=== PATIENT | male | born 1960 | race African-American/Black ===

== ENCOUNTER 2017-02-26 11:04 | Inpatient (IN) ==
--- NOTE | 2017-02-26 13:37 | General Surgery Consult Note ---
Assessment and Plan (1) End stage renal disease Status: Acute Assessment and plan: Impression: End-stage renal disease Plan: For placement of tunneled hemodialysis catheter today. The procedure and habits performed and the anticipated recovery were all discussed. The risk of the procedure including bleeding, infection, damage to surrounding structures, need for further surgery were all discussed in detail and he would like to proceed. He has been n.p.o. today. Discussed with Dr. Campbell. Current Visit: Yes History of Present Illness Chief complaint: Consult for tunneled hemodialysis catheter History of present illness: Mr. Person is a 57 year old male who was admitted from clinic today by Dr. Campbell with plans to begin hemodialysis urgently. I have been asked to place a hemodialysis catheter for access. This is been discussed with Dr. Campbell. Patient has no complaints that would affect placement of the catheter. Home Medications Medication Instructions Recorded Confirmed Type Atorvastatin [Lipitor] 20 mg PO DAILY 06/28/15 History Brimonidine 0.1% Oph Soln 1 drop BOTH EYES TID 06/28/15 History [Alphagan P 0.1% Oph Soln] Carvedilol [Coreg] 12.5 mg PO BID 06/28/15 History Clobetasol Propionate [Clobetasol 1 applic TOP BID 06/28/15 History 0.05% Cream] Doxazosin Mesylate [Cardura] 8 mg PO DAILY 06/28/15 History Ferrous Sulfate [Ferrous Sulfate 325 mg PO DAILY 06/28/15 History Cap] Furosemide 20 mg PO DAILY 06/28/15 History Insulin Glargine [Lantus] 40 unit SUBCUT DAILY 06/28/15 History Latanoprost 0.005% Oph Soln 1 drop BOTH EYES BEDTIME 06/28/15 History [Xalatan 0.005% Oph Soln] Oxycodone HCl/Acetaminophen 1 each PO Q6H 06/28/15 History [Percocet 10-325 mg Tablet] Pantoprazole Tab [Protonix Tab] 40 mg PO DAILY 06/28/15 History amLODIPine [Norvasc] 10 mg PO DAILY 06/28/15 History Amoxicillin/Clav Tab [Augmentin 875 mg PO Q12H #14 tablet 10/02/16 Rx Tab] traMADol TAB [Ultram] 50 mg PO Q4H PRN #30 tablet 10/02/16 Rx traMADol TAB [Ultram] 50 mg PO Q4H PRN #30 tablet 10/02/16 Rx Allergies Allergy/AdvReac Type Severity Reaction Status Date / Time morphine Allergy ITCHING Verified 03/16/15 19:01 Medical,Surgical,& Family Hx - Medical History Cardio: History of: CHF, Hypertension Endocrine: History of: Diabetes Mellitus (NIDDM) Renal: History of: Dialysis (new onset 02-26-17), Renal Failure Musculoskeletal: History of: Back/Neck Problems - Surgical History Orthopedic Surgeries: Surgical HX of;: Spinal Surgery (2 metal plates with screws in back) - Family History Family History: Reports;: Family Cancer (brother), Family Diabetes (mother, father), Family Hypertension (mother) Denies;: Family Anesthesia Reaction, Family Heart Disease, Family Hematology , Family Psychiatric Problems, Family Stroke, Additional Family History - Social History Smoking Status: Never smoker Frequency of Alcohol Use: None Type of Drug Use: None 12 point system: reviewed and no additional remarkable complaints except as stated Exam - Constitutional General appearance: no acute distress - Head Head exam: Present: normocephalic - Neck Neck exam: Present: normal inspection - Respiratory Respiratory exam: Present: clear to auscultation bilaterally - Cardiovascular Cardiovascular exam: Present: RRR - GI/Abdominal GI/Abdominal exam: Present: soft - Extremities Exam Extremities exam: Present: edema - Neurological Exam Neurological exam: Present: alert, oriented X3 Speech: Present: normal - Skin Skin exam: Present: normal color
[2017-02-26] MEDS ORDERED: HEPARIN 5,000 UNIT/1 ML VIAL ONE (13:44)
[2017-02-26] MEDS ORDERED: BUPIVACAINE MPF 0.25% /EPI 30 ML VIAL ONE (13:44)
[2017-02-26] MEDS ORDERED: LIDOCAINE 1%/EPI INJ 20 ML VIAL ONE (13:45)
[2017-02-26] MEDS ORDERED: ONDANSETRON 4 MG/2 ML VIAL ONE (14:10)
[2017-02-26] MEDS ORDERED: LIDOCAINE 1% 5 ML VIAL ONE (14:10)
[2017-02-26] MEDS ORDERED: PROPOFOL 200 MG/20 ML VIAL IV ONE (14:10)
[2017-02-26] MEDS ORDERED: KETOROLAC 30 MG/1 ML VIAL ONE (14:10)
--- NOTE | 2017-02-26 14:46 | Operative Note ---
Date of procedure: 02/26/17 Pre-op diagnosis: End-stage renal disease Post-op diagnosis: same Procedure: Procedure performed: #1 placement of right internal jugular tunneled hemodialysis catheter #2 ultrasound-guided venous access #3 supervision and interpretation fluoroscopy Procedure in detail: After informed consent was obtained, the patient was taken operating suite placed upon the operating table. After monitored anesthesia was initiated bilateral neck and chest were prepped and draped in usual sterile fashion. After procedural pause local anesthetic infiltrated in the skin and subcutaneous tissue the right neck. Ultrasound brought over through a sterile sleeve covering ultrasound the right neck revealed a patent and compressible right internal jugular vein. The right internal jugular vein was then accessed using an 18-gauge Seldinger needle under ultrasound guidance on the first attempt. There was return of nonpulsatile dark red blood. Guidewire inserted and advanced without resistance. Fluoroscopy demonstrated the guidewire be coursing in the appropriate position. Next a 23 cm cuffed hemodialysis catheter was tunneled from a separate incision in the right chest wall up to the base the right neck. Dilator and sheath were placed over the guidewire using Seldinger technique under fluoroscopic guidance. Dilator and guidewire were removed leaving the sheath in place. The catheter inserted through the sheath and the sheath peeled away leaving the catheter tip in Spear vena cava. Catheter withdrew and flushed easily and was locked with heparinized saline. It was secured in place with 2-0 nylon. Incision closed with 2-0 nylon. Sterile dressings applied. Patient taken recovery room in stable condition. All lap and needle counts correct at the end of the case. Anesthesia: MAC, local Surgeon / Physician: Georgi Cheek Estimated blood loss: other (Less than 10 cc) Specimens: none sent Condition: stable Disposition: PACU Discharge Plan - Discharge Medications No Action Pantoprazole Tab [Protonix Tab] 40 mg PO DAILY Latanoprost 0.005% Oph Soln [Xalatan 0.005% Oph Soln] 1 drop BOTH EYES BEDTIME Oxycodone HCl/Acetaminophen [Percocet 10-325 mg Tablet] 1 each PO Q6H Insulin Glargine [Lantus] 40 unit SUBCUT DAILY Ferrous Sulfate [Ferrous Sulfate Cap] 325 mg PO TID Clobetasol Propionate [Clobetasol 0.05% Cream] 1 applic TOP BID Doxazosin Mesylate [Cardura] 8 mg PO DAILY Carvedilol [Coreg] 12.5 mg PO BID Atorvastatin [Lipitor] 20 mg PO DAILY amLODIPine [Norvasc] 10 mg PO DAILY Brimonidine 0.1% Oph Soln [Alphagan P 0.1% Oph Soln] 1 drop BOTH EYES TID Tizanidine HCl [Zanaflex] 4 mg PO TID PRN PRN Reason: Muscle Spasm - Follow Up or Referral - Forms/Instructions
--- NOTE | 2017-02-26 14:58 | Anesthesia Post-Op ---
Anesthesia Post OP - Post Ansesthetic Evaluation Patient seen in post op: Yes Resp: within normal limits CV: within normal limits Mental: within normal limits Temp: within normal limits Edkn-My-Bpfovhxda: within normal limits Nausea and Vomiting: within normal limits Pain: within normal limits
[2017-02-26] MEDS ORDERED: fentaNYL 100 MCG/2 ML VIAL ONE (15:05)
[2017-02-26] MEDS ORDERED: MIDAZOLAM 2 MG/2 ML VIAL ONE (15:06)
--- NOTE | 2017-02-26 15:13 | XRay Report ---
Referring Physician: Georgi Cheek Exam: XR chest 1V portable Date: February 26, 2017 at 2:47 PM Reason: Catheter placement Comparison: Chest one view portable March 16, 2015 Findings: A right-sided dialysis catheter is present with its distal tip within the SVC. The cardiac silhouette is again enlarged. There is minimal atelectasis within the right midlung zone, but no pneumothorax or pleural effusion is identified. No acute osseous process is seen. Impression: 1. A right-sided hemodialysis catheter is present with its distal tip at the right atrium. 2. Cardiomegaly. 3. Minimal atelectasis within the right midlung zone. Follow-up would be helpful to confirm resolution and exclude a pulmonary nodule in this region. PROCEDURE INTERPRETED AT [facility] DEPARTMENT OF RADIOLOGY Final Report Signed by: Dr. Rajan Howard
--- NOTE | 2017-02-26 15:29 | Nephrology History & Physical ---
History of Present Illness Chief complaint: Increased BUN and creatinine History of present illness: Mr. Person is a 57 year old male who I follow in the outpatient setting for chronic kidney disease. The patient was seen by me in clinic today, his creatinine was noted to be 9.5 mg/dL, the patient also had a calcium level of around 5.5 and elevated phosphorus of around 6.5 patient also had a significant degree of anemia with a hematocrit around 21%. The patient was having complaints of cramping in his legs and stomach. He denied nausea or vomiting. He denied decreased energy, he denied increased somnolence, he denied any decrease in his appetite. The patient has had progressive renal failure over the past couple of years. His renal insufficiency is thought to be secondary to diabetes and hypertension. ROS: Head - denies headaches ENT - denies sore throat Lymphatics - denies lymphadenopathy Hematology - denies bleeding problems Heart - denies chest pain, he complains of increased swelling in his legs Lungs - denies shortness of breath Abdomen -positive abdominal pain Musculoskeletal - denies arthritis, he complains of cramps in his calves bilaterally Skin - denies rash Neurology - denies stroke General - denies fever PE: General: in moderate distress occasionally grabbing his calf and great discomfort, the patient also became very distraught when told we were going to admit him for dialysis. Eyes: Pupils are round and reactive, conjunctivae are clear ENT: Nose is clear, O/P is benign Neck: Supple, no thyromegaly Lymphatics: No cervical, supraclavicular or axillary adenopathy Heart: Regular rate and rhythm, 2+ pretibial edema Lungs: Clear to auscultation anteriorly, chest expansion symmetric Abdomen: Soft, normoactive bowel sounds, no hepatomegaly Musculoskeletal: No joint erythema or effusions or joint asymmetry Skin: Normal turgor, normal hydration, no rash Neuro/Psych: Alert and cooperative with poor insight Home Medications Medication Instructions Recorded Confirmed Type Atorvastatin [Lipitor] 20 mg PO DAILY 06/28/15 02/26/17 History Brimonidine 0.1% Oph Soln 1 drop BOTH EYES TID 06/28/15 02/26/17 History [Alphagan P 0.1% Oph Soln] Carvedilol [Coreg] 12.5 mg PO BID 06/28/15 02/26/17 History Clobetasol Propionate [Clobetasol 1 applic TOP BID 06/28/15 02/26/17 History 0.05% Cream] Doxazosin Mesylate [Cardura] 8 mg PO DAILY 06/28/15 02/26/17 History Ferrous Sulfate [Ferrous Sulfate 325 mg PO TID 06/28/15 02/26/17 History Cap] Insulin Glargine [Lantus] 40 unit SUBCUT DAILY 06/28/15 02/26/17 History Latanoprost 0.005% Oph Soln 1 drop BOTH EYES BEDTIME 06/28/15 02/26/17 History [Xalatan 0.005% Oph Soln] Oxycodone HCl/Acetaminophen 1 each PO Q6H 06/28/15 02/26/17 History [Percocet 10-325 mg Tablet] Pantoprazole Tab [Protonix Tab] 40 mg PO DAILY 06/28/15 02/26/17 History amLODIPine [Norvasc] 10 mg PO DAILY 06/28/15 02/26/17 History Tizanidine HCl [Zanaflex] 4 mg PO TID PRN 02/26/17 02/26/17 History Allergies Allergy/AdvReac Type Severity Reaction Status Date / Time Seafood Allergy Unknown Unknown/Unable Verified 02/26/17 14:01 to obtain sulfamethoxazole Allergy Unknown Unknown/Unable Verified 02/26/17 13:59 [From Bactrim] to obtain trimethoprim [From Bactrim] Allergy Unknown Unknown/Unable Verified 02/26/17 13: 59 to obtain morphine Allergy ITCHING Verified 02/26/17 13:56 Medical,Surgical,& Family Hx - Medical History Cardio: History of: CHF, Hypertension Endocrine: History of: Diabetes Mellitus (NIDDM) Renal: History of: Dialysis (new onset 02-26-17), Renal Failure Musculoskeletal: History of: Back/Neck Problems - Surgical History Orthopedic Surgeries: Surgical HX of;: Spinal Surgery (2 metal plates with screws in back) - Family History Family History: Reports;: Family Cancer (brother), Family Diabetes (mother, father), Family Hypertension (mother) Denies;: Family Anesthesia Reaction, Family Heart Disease, Family Hematology , Family Psychiatric Problems, Family Stroke, Additional Family History - Social History Smoking Status: Never smoker Frequency of Alcohol Use: None Type of Drug Use: None Exam - Nephrology - Vital Signs Vital signs: Vital Signs Temp Pulse Pulse Resp BP BP Pulse Ox 02/26/17 15:15 71 16 138/83 96 02/26/17 15:10 70 16 144/83 100 02/26/17 15:05 72 16 135/78 100 02/26/17 15:00 71 16 123/74 100 02/26/17 14:52 97.6 F 71 16 143/72 100 02/26/17 12:25 97.0 F L 76 18 161/80 Pulse Ox 02/26/17 15:15 02/26/17 15:10 02/26/17 15:05 02/26/17 15:00 02/26/17 14:52 02/26/17 12:25 99 Assessment and Plan (1) End stage renal disease Status: Acute Assessment and plan: Patient is admitted for a tunneled dialysis catheter and dialysis initiation Current Visit: Yes (2) Anemia Status: Acute Assessment and plan: Patient states he has had some black tarry stools, will start him on erythropoietin and will Hemoccult his stool, he will ultimately need an evaluation by GI matter Current Visit: Yes (3) Secondary hyperparathyroidism Status: Acute Assessment and plan: I am going to start the patient on calcium carbonate with meals as well as at bedtime Current Visit: Yes (4) Hypocalcemia Status: Acute Current Visit: Yes (5) Diabetes mellitus Status: Acute Assessment and plan: We will monitor with a sliding scale Current Visit: Yes (6) Hypertension Status: Acute Assessment and plan: We will continue his outpatient antihypertensives Current Visit: Yes (7) Volume overload Status: Acute Assessment and plan: We will try and slowly bring down his fluid weight on dialysis Current Visit: Yes
[2017-02-26] MEDS ORDERED: ACETAMINOPHEN 325 MG TABLET PO PRN (15:32)
[2017-02-26] MEDS ORDERED: LACTULOSE 20 GM/30 ML UDCUP PO PRN (15:32)
[2017-02-26] MEDS ORDERED: PROMETHAZINE 25 MG TABLET PO PRN (15:32)
[2017-02-26] MEDS ORDERED: DOCUSATE SODIUM 100 MG CAPSULE PO PRN (15:32)
[2017-02-26] MEDS ORDERED: BISACODYL 5 MG TABLET PO PRN (15:32)
[2017-02-26] MEDS ORDERED: guaiFENesin/DM ER 600-30 MG TABLET PO PRN (15:32)
[2017-02-26] MEDS ORDERED: ONDANSETRON 4 MG/2 ML VIAL IV PRN (15:32)
--- NOTE | 2017-02-26 15:32 | Event Note ---
HD catheter placement confirmed by CXR within SVC at junction of RA. We will sign off at this time, please call with any concerns or changes. Pt to f/u [address] Cheek with vein mapping. Order on chart to schedule.
[2017-02-26] MEDS ORDERED: GLUCAGON 1 MG VIAL IM PRN (15:36)
[2017-02-26] MEDS ORDERED: DEXTROSE 50% 25 GM/50 ML VIAL IV PRN (15:36)
[2017-02-26] MEDS ORDERED: EPOETIN ALFA 10,000 UNIT/1 ML VIAL IV PRN (15:37)
[2017-02-26] MEDS ORDERED: cloNIDine 0.1 MG TABLET PO PRN (15:41)
[2017-02-26] MEDS ORDERED: tiZANidine 4 MG TABLET PO PRN (15:42)
[2017-02-26 16:35] LABS: Hepatitis A Ab IgM Quant < 0.02 Index; Hepatitis A Ab IgM Result Negative (Negative); Hepatitis B Core IgM Quant 0.22 Index; Hepatitis B Core IgM Result Negative (Negative); Hepatitis B Surface Ag Quant < 0.10 Index; Hepatitis B Surface Ag Result Negative (Negative); Hepatitis C Virus Ab Quant 0.12 Index; Hepatitis C Virus Ab Result Negative (Negative)
[2017-02-26] MEDS ORDERED: HEPARIN 10,000 UNIT/10 ML VIAL IV SCH (17:00)
[2017-02-26] MEDS: INSULIN REGULAR 100 UNIT/ML SUBCUT SCH ×2 (17:01→21:48)
[2017-02-26] MEDS: BRIMONIDINE 0.1% OPH SOLN 5 ML BOTTLE BOTH EYES SCH (21:47)
[2017-02-26] MEDS: LATANOPROST 0.005% OPH SOLN 2.5 ML BOTTLE BOTH EYES SCH (21:47)
[2017-02-26] MEDS: CALCIUM (CARBONATE) 500 MG TABLET PO SCH ×3 (21:48→22:00)
[2017-02-26] MEDS: CARVEDILOL 12.5 MG TABLET PO SCH (21:48)
[2017-02-26] MEDS: CLOBETASOL 0.05% CREAM 15 GM TUBE TOP SCH (21:48)
[2017-02-26] MEDS: ZALEPLON 5 MG CAPSULE PO PRN (21:48)
[2017-02-26] MEDS: diphenhydrAMINE CAP 25 MG CAPSULE PO PRN (22:04)
--- NOTE | 2017-02-27 06:43 | Gastrointestinal Consult Note ---
Assessment and Plan (1) History of melena Status: Acute Assessment and plan: Patient states that he had some dark stools approximately a week ago. He avoids NSAIDs fastidiously, and is not a drinker at all. We will perform upper endoscopy as previous duodenal polyps have been seen although this was done back in 2011 as mentioned above. He has long-standing history of iron deficiency anemia with previous workup done by Dr. Gibbons which was unrevealing back in 2011. We will look for evidence of celiac sprue as well, the majority of his anemia may be secondary to renal dysfunction. We will also check iron studies at this time. Current Visit: Yes (2) Personal history of colonic polyps Status: Acute Assessment and plan: This patient had a villous adenoma discovered back in 2011 and has not had repeat colonoscopy. We may be pursuing this this admission to wait until he is discharged from the hospital. Either way he will need a GoLYTELY prep. This may be easier to do as an inpatient. We will perform upper endoscopy today and see if we find anything and if not probably write for the colonoscopy to be done tomorrow, as he is 2 years overdue for recheck and is now having anemia. Current Visit: Yes (3) Anemia Status: Acute Assessment and plan: We will check patient's iron studies and see if this is truly iron deficiency anemia or anemia of chronic disease--it is entirely likely that there may be multifactorial reasons for the anemia as well. Patient has been taking supplements including tea which raises the question of nutritional issues and other medications feeding into the situation at present. Will check CBC at this time as well. Not sure is been written for blood to be given as I do not see anything in the blood bank records. This is likely awaiting dialysis. Current Visit: Yes History of Present Illness Chief complaint: Melena and recent hematocrit at 21% in a patient with CKD starting dialysis History of present illness: Mr. Person is a 57 year old male who has a history of chronic kidney disease and has been admitted for workup of his anemia in addition to initiation of his dialysis which he has been hoping to avoid by drinking tea and other herbal remedies as an outpatient. His creatinine had gone up to 9.5 and a calcium level about 5.5 with an elevated phosphorus of 6.5 and been experiencing severe cramping throughout his body. The patient also states that he had had some black stools approximately a week ago. He had actually undergone previous workup of iron deficiency anemia by Dr. Gibbons as recently as 05/09/12 at which time he had an upper endoscopy done which showed a benign duodenal polyp retained gastric contents small hiatal hernia but no cause for bleeding seen. Patient subsequently had a colonoscopy done on 05/10/12 which demonstrated a 1.5-2 cm pedunculated polyp in the cecum this was snared and sent for pathology and appeared benign there was a fair amount of diverticulosis noted. Pathology of the lesion in the cecum demonstrated a villous adenoma with margins that extended to the cauterized edge. These have about a 30% chance of going on to colon cancer if left in the colon. 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 He states that he is hosting an event that he hopes will draw [phone] people and would like to be able to be discharged by Sunday if possible. He denies reflux, dysphagia, abdominal pain, diarrhea, constipation, and bright red blood per rectum. His stools are guaiac-negative. He has been checked recently and has a hepatitis A, B, and C which are all negative. I do not see repeat CBC from this morning, but will order this, along with iron studies. He is not been given any blood yet. Laboratories from the clinic demonstrated a hematocrit of 21.0% hemoglobin of 6.2 g/dL, white blood cell count of 7.5 and platelet count 208. Home Medications Medication Instructions Recorded Confirmed Type Atorvastatin [Lipitor] 20 mg PO DAILY 06/28/15 02/26/17 History Brimonidine 0.1% Oph Soln 1 drop BOTH EYES TID 06/28/15 02/26/17 History [Alphagan P 0.1% Oph Soln] Carvedilol [Coreg] 12.5 mg PO BID 06/28/15 02/26/17 History Clobetasol Propionate [Clobetasol 1 applic TOP BID 06/28/15 02/26/17 History 0.05% Cream] Doxazosin Mesylate [Cardura] 8 mg PO DAILY 06/28/15 02/26/17 History Ferrous Sulfate [Ferrous Sulfate 325 mg PO TID 06/28/15 02/26/17 History Cap] Insulin Glargine [Lantus] 40 unit SUBCUT DAILY 06/28/15 02/26/17 History Latanoprost 0.005% Oph Soln 1 drop BOTH EYES BEDTIME 06/28/15 02/26/17 History [Xalatan 0.005% Oph Soln] Oxycodone HCl/Acetaminophen 1 each PO Q6H 06/28/15 02/26/17 History [Percocet 10-325 mg Tablet] Pantoprazole Tab [Protonix Tab] 40 mg PO DAILY 06/28/15 02/26/17 History amLODIPine [Norvasc] 10 mg PO DAILY 06/28/15 02/26/17 History Tizanidine HCl [Zanaflex] 4 mg PO TID PRN 02/26/17 02/26/17 History Allergies Allergy/AdvReac Type Severity Reaction Status Date / Time sulfamethoxazole Allergy Severe Swelling Verified 02/26/17 15:46 [From Bactrim] of Lip/Tongue/Throat trimethoprim [From Bactrim] Allergy Severe Swelling Verified 02/26/17 15:47 of Lip/Tongue/Throat morphine Allergy ITCHING Verified 02/26/17 13:56 Medical,Surgical,& Family Hx - Medical History Cardio: History of: CHF, Hypertension Endocrine: History of: Diabetes Mellitus (NIDDM) Renal: History of: Dialysis (new onset 02-26-17), Renal Failure Musculoskeletal: History of: Back/Neck Problems - Surgical History Orthopedic Surgeries: Surgical HX of;: Spinal Surgery (2 metal plates with screws in back) - Family History Family History: Reports;: Family Cancer (brother), Family Diabetes (mother, father), Family Hypertension (mother) Denies;: Family Anesthesia Reaction, Family Heart Disease, Family Hematology , Family Psychiatric Problems, Family Stroke, Additional Family History - Social History Smoking Status: Never smoker Frequency of Alcohol Use: None Type of Drug Use: None Review of systems: Constitutional: Denies fever, chills, nausea, and vomiting Eyes: Denies dry eyes, and scleral icterus HENT: Denies headaches Cardiovascular: Denies acute chest pain and claudication Respiratory: Denies shortness of breath, wheezing, and difficulty breathing, denies cough Gastrointestinal: As noted in the HPI Genitourinary: Denies dysuria and hematuria, he still makes some urine each day. Neurologic: Denies vision loss, and loss of sensation Musculoskeletal: Admits to joint stiffness, and muscular weakness, mostly dealing with his back. He has had multiple surgeries and spinal injections in the past. He thinks his anemia may be related to these. He does not have excessive swelling today but did have left leg swelling yesterday he states. Psychiatric: Denies depression and andrew symptoms Heme-Lymph: Denies easy bruising, lymph node enlargement or tenderness, night sweats, excessive bleeding Allergies-immunologic: Denies pruritus and rhinorrhea Exam - Constitutional Vitals: Period Temp Pulse Resp BP Sys/Mohan Pulse Ox Last 24 Hr 97.0 F-98.3 F 68-86 16-20 123-161/69-85 95-100 General appearance: no acute distress Exam: Constitutional: Well-developed, well-nourished, alert, and in no acute distress Head and face: Head: Normocephalic atraumatic Eyes: Conjunctiva without injection, no gross scleral icterus, pupils equal and round bilaterally Ears: Intact to conversation in both ears Nose: External appearance is normal, nares patent Mouth: Oral mucous membranes moist without erythema dentition noted to be without erosion Neck: Normal appearance, no masses or tenderness, trachea midline Thyroid: Gland midline and appropriate size for age Respiratory: Normal respiratory effort, clear to auscultation without wheezes, rhonchi or rales Cardiovascular: Regular rate and rhythm, normal S1, S2, the exam is without rubs, murmurs or gallops. Gastrointestinal: Nontender to palpation, normal active bowel sounds, tone normal without rigidity or guarding, no masses present, no hepatomegaly, no spleen tip felt. There is a long scar noted anteriorly just to the left of the symphysis pubis vertically in the lower abdomen from the patient's previous spinal surgery. Patient does have internal hemorrhoids noted on rectal exam but stool is guaiac negative Lymphatic: Neck without adenopathy, axilla without lymphadenopathy present Musculoskeletal: Right and left lower extremities without evidence of edema Skin and subcutaneous tissue: No rashes or ulcerations noted, normal skin turgor, digits and nails without clubbing/cyanosis/deformities. Neurologic: The patient is grossly oriented to person place and time, cranial nerves show tongue movements are normal with normal tongue extrusion midline, light touch sensation is intact. Psychiatric: No hallucinations or delusions are present, does not appear depressed
--- NOTE | 2017-02-27 07:29 | EKG Report ---
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
--- NOTE | 2017-02-27 07:32 | Nephrology Progress Note ---
Nephrology - PN: Subj Interval history: Patient is feeling better this morning. He denies any leg cramps since admission. Review of systems pulmonary he denies shortness of breath Physical exam general patient is in no acute distress Assessment/plan 1. End-stage renal disease-we will continue hemodialysis support 2. Anemia-patient's to have upper endoscopy today 3. Diabetes mellitus we will continue sliding scale insulin 4. Hypertension we will continue his present antihypertensives Exam (PN)-Nephrology - Vital Signs Vital signs: Period Temp Pulse Resp BP Sys/Mohan Pulse Ox Last 24 Hr 97.0 F-98.3 F 68-86 16-20 123-161/69-85 95-100 Assessment and Plan (1) End stage renal disease Status: Acute Assessment and plan: Patient is admitted for a tunneled dialysis catheter and dialysis initiation Current Visit: Yes (2) Anemia Status: Acute Assessment and plan: Patient states he has had some black tarry stools, will start him on erythropoietin and will Hemoccult his stool, he will ultimately need an evaluation by GI matter Current Visit: Yes (3) Secondary hyperparathyroidism Status: Acute Assessment and plan: I am going to start the patient on calcium carbonate with meals as well as at bedtime Current Visit: Yes (4) Hypocalcemia Status: Acute Current Visit: Yes (5) Diabetes mellitus Status: Acute Assessment and plan: We will monitor with a sliding scale Current Visit: Yes (6) Hypertension Status: Acute Assessment and plan: We will continue his outpatient antihypertensives Current Visit: Yes (7) Volume overload Status: Acute Assessment and plan: We will try and slowly bring down his fluid weight on dialysis Current Visit: Yes
[2017-02-27 08:10] LABS: Basophils % 0.2 % (0.0-0.8); Eosinophils # 0.1 10*3/uL (0.0-0.87); Eosinophils % 2.6 % (0.00-10.9); Hematocrit 22.6 VOL% (42.0-52.0); Hemoglobin 6.8 GM/DL (14.0-18.0); Immature Granulocytes % 0.4 %; Immature Granulocytes Absolute 0.02 #; Lymphocytes # 0.7 10*3/uL (1.4-4.0); Lymphocytes % 13.7 % (21.2-54.2); Mean Corpuscular HGB Conc 30.1 GM/DL (32-36); Mean Corpuscular Hemoglobin 23 PG (27-34); Mean Corpuscular Volume 77.9 FL (87-102); Monocytes # 0.5 10*3/uL (0.11-0.8); Monocytes % 9.4 % (1.7-12.7); Neutrophils % 73.7 % (38.7-73.9); Platelet Count 186 T/CUMM (130-400); Red Cell Distribution Width 20.2 % (9.3-17.3); White Blood Count 5.4 T/CUMM (4-12)
[2017-02-27 08:31] LABS: Elliptocytes Few; Eosinophils 1 % (0-10); Hypochromasia 1+; Lymphocytes 17 % (20-55); Platelet Estimate Normal; Segmented Neutrophils 77 % (50-85); Total Cells Counted 100
[2017-02-27 08:33] LABS: % Iron Saturation 25.8 % (18-50); Albumin 3.2 G/DL (3.4-5.0); Bilirubin,Total 0.4 MG/DL (0.2-1.0); Calcium 6.1 MG/DL (8.5-10.1); Osmolality,Calculated 298.1 MOS/KG (273-304); Total Protein 6.5 G/DL (6.4-8.3)
[2017-02-27] MEDS: BRIMONIDINE 0.1% OPH SOLN 5 ML BOTTLE BOTH EYES SCH ×3 (08:50→20:30)
[2017-02-27] MEDS: INSULIN REGULAR 100 UNIT/ML SUBCUT SCH ×4 (08:50→20:32)
[2017-02-27] MEDS: INSULIN GLARGINE 100 UNIT/ML SUBCUT SCH (08:51)
[2017-02-27] MEDS: CLOBETASOL 0.05% CREAM 15 GM TUBE TOP SCH ×2 (08:51→20:30)
[2017-02-27] MEDS ORDERED: LIDOCAINE 1% 5 ML VIAL ONE (08:59)
[2017-02-27] MEDS ORDERED: PROPOFOL 200 MG/20 ML VIAL IV ONE (08:59)
--- NOTE | 2017-02-27 09:05 | Operative Note ---
Date of procedure: 02/27/17 Pre-op diagnosis: Anemia with hematocrit down to 21%, history of melena approx. 1 week ago Post-op diagnosis: other (Nonerosive duodenitis noted, biopsies pending to rule out sprue, there was some localized punctate gastritis noted in the antrum and biopsies were taken here as well. He should do well with simple suppression of acidity with Protonix once daily. We will need to proceed with colonoscopy repeat tomorrow due to this level of anemia and the prior history of villous adenoma in the cecum in 2011) Procedure: PROCEDURE: Esophagogastroduodenoscopy (EGD) with cold biopsy for pathology REFERRING PHYSICIAN: Dr. Yordan Campbell MD INDICATIONS: Patient with severe anemia down to 21% with previous workup done back in 2011 with no significant source seen at that time. The patient did have a large villous polyp noted at the cecum and this needs rechecking. The prior H&P was reviewed and interrim changes are as noted: No change from GI consultation today ENDOSCOPIST: Richard Sood MD ENDOSCOPE: Olympus Video 100 System upper endoscope ASA CLASS: 4 EXAM: CV: regular rate and rhythm respiratory: Clear without wheezes abdominal: active bowel sounds MEDICATION: Per nursing anesthesia protocol, see their notes PROCEDURE: After discussion of the potential risks and benefits of upper endoscopy, the informed consent was obtained. The patient was then placed in the left lateral decubitus position where sedation was achieved as noted above. Esophageal intubation was performed without difficulty, and the endoscope was advanced through the esophagus, stomach and duodenum. A slow withdrawal was then performed with retroflexion in the stomach for careful inspection of the incisura angularis, fundus and cardia. The scope was then returned to a neutral position and withdrawn through the esophagus. The patient tolerated the procedure well and without complication. BIOPSIES: Gastric antrum/body, duodenum PHOTOGRAPHS: Obtained FINDINGS: Hypopharynx and Larynx: Normal Esohagoscopy Upper and middle thirds: Normal Lower third normal Esophogastric junctions: Normal, no evidence of esophagitis or Jett' s or stricturing. Gastroscopy: Cardia/Fundus: Normal Body: Mild erythema noted, biopsied Antrum and pylorus some localized punctate gastritis, biopsied Duodenoscopy: Bulb moderate nonerosive duodenitis noted, biopsied Second and third portions: Moderate nonerosive duodenitis noted, biopsied, rule out sprue IMPRESSION: Nonerosive duodenitis noted, biopsies pending to rule out sprue, there was some localized punctate gastritis noted in the antrum and biopsies were taken here as well. He should do well with simple suppression of acidity with Protonix once daily. We will need to proceed with colonoscopy repeat tomorrow due to this level of anemia and the prior history of villous adenoma in the cecum in 2011. If the colon is negative for bleeding source some of this anemia certainly due to the patient's underlying renal dysfunction RECOMMENDATIONS: Follow up for biopsy results in 1-2 weeks by phone [phone] Continue anti-gastroesophageal reflux measures (avoid carbonated and acidic beverages, avoid eating within 2 hours of bedtime, avoid tight fitting clothing , and elevate the front bed posts 6 inches prior to sleeping. Protonix orally 40 mg once daily should suffice for suppressing this patient's acidity Richard Sood MD COPY TO: Dr. Yordan Campbell MD Anesthesia: MAC Surgeon / Physician: Richard Sood Estimated blood loss: minimal Specimens: other (Gastric antrum/body, duodenum) Condition: stable Disposition: post procedure unit (G.I. Suite) Results - Labs CBC & BMP: 02/27/17 07:57 02/27/17 07:57 Discharge Plan - Discharge Medications No Action Pantoprazole Tab [Protonix Tab] 40 mg PO DAILY Latanoprost 0.005% Oph Soln [Xalatan 0.005% Oph Soln] 1 drop BOTH EYES BEDTIME Oxycodone HCl/Acetaminophen [Percocet 10-325 mg Tablet] 1 each PO Q6H Insulin Glargine [Lantus] 40 unit SUBCUT DAILY Ferrous Sulfate [Ferrous Sulfate Cap] 325 mg PO TID Clobetasol Propionate [Clobetasol 0.05% Cream] 1 applic TOP BID Doxazosin Mesylate [Cardura] 8 mg PO DAILY Carvedilol [Coreg] 12.5 mg PO BID Atorvastatin [Lipitor] 20 mg PO DAILY amLODIPine [Norvasc] 10 mg PO DAILY Brimonidine 0.1% Oph Soln [Alphagan P 0.1% Oph Soln] 1 drop BOTH EYES TID Tizanidine HCl [Zanaflex] 4 mg PO TID PRN PRN Reason: Muscle Spasm - Follow Up or Referral - Forms/Instructions
--- NOTE | 2017-02-27 09:09 | Anesthesia Post-Op ---
Anesthesia Post OP - Post Ansesthetic Evaluation Patient seen in post op: Yes Resp: within normal limits CV: within normal limits Mental: within normal limits Temp: within normal limits [id number]: within normal limits Nausea and Vomiting: within normal limits Pain: within normal limits
[2017-02-27] MEDS: PANTOPRAZOLE 40 MG TABLET PO SCH (11:43)
[2017-02-27] MEDS: DOXAZOSIN 4 MG TABLET PO SCH (11:43)
[2017-02-27] MEDS: CALCIUM (CARBONATE) 500 MG TABLET PO SCH (11:44)
[2017-02-27] MEDS: amLODIPine 10 MG TABLET PO SCH (11:45)
[2017-02-27] MEDS: CALCIUM CARBONATE CHEW 500 MG TABLET PO SCH ×3 (11:45→18:15)
[2017-02-27] MEDS: CARVEDILOL 12.5 MG TABLET PO SCH ×2 (11:45→20:33)
[2017-02-27] MEDS: PROMETHAZINE 25 MG TABLET PO SCH ×3 (11:46→20:33)
[2017-02-27] MEDS: BISACODYL 5 MG TABLET PO SCH ×2 (11:46→18:25)
--- NOTE | 2017-02-27 15:15 | Dialysis Note ---
Dialysis Note - Dialysis Note Mr. Person is seen during hemodialysis. He is tolerating procedure well. Plan is to continue with dialysis per schedule
[2017-02-27] MEDS ORDERED: POLYETHYLENE GLYCOL 3350/ELECTROLYTES 4,000 ML BOTTLE PEG ONE (16:10)
--- NOTE | 2017-02-27 18:43 | Event Note ---
The patient is refusing his prep, he states that he does not want to defecate any further. He now states that he had had previous endoscopy done over [facility] 2 years ago and states that he has had colonoscopy done him 4-5 times over his lifetime and does not wish to proceed with this at this time. He seems to understand the risks of not looking, i.e., missed colon cancer, AVMs and other bleeding lesions. He was additionally offered an NG tube in order to prevent him from having to taste the GoLYTELY. GoLYTELY is required secondary to his renal dysfunction. We will cancel the colonoscopy for tomorrow. The patient can be discharged at any time in my opinion. Renal diet written for.
[2017-02-27] MEDS: LATANOPROST 0.005% OPH SOLN 2.5 ML BOTTLE BOTH EYES SCH (20:30)
[2017-02-27] MEDS: diphenhydrAMINE CAP 25 MG CAPSULE PO PRN (20:33)
[2017-02-27] MEDS: ZALEPLON 5 MG CAPSULE PO PRN (20:33)
[2017-02-27] MEDS ORDERED: MAGNESIUM CITRATE 300 ML BOTTLE PO ONE (21:00)
[2017-02-28] MEDS: PROMETHAZINE 25 MG TABLET PO SCH ×3 (04:43→15:00)
[2017-02-28] MEDS: BISACODYL 5 MG TABLET PO SCH (04:43)
--- NOTE | 2017-02-28 06:38 | Gastrointestinal Progress Note ---
Assessment and Plan (1) History of melena Status: Acute Assessment and plan: Patient states that he had some dark stools approximately a week ago. He avoids NSAIDs fastidiously, and is not a drinker at all. We will perform upper endoscopy as previous duodenal polyps have been seen although this was done back in 2011 as mentioned above. He has long-standing history of iron deficiency anemia with previous workup done by Dr. Gibbons which was unrevealing back in 2011. We will look for evidence of celiac sprue as well, the majority of his anemia may be secondary to renal dysfunction. We will also check iron studies at this time. 02/28/17--Laboratories are not back yet. Patient will be getting dialysis today , he is not actively bleeding from the upper GI tract. As he is into his intravascular volume is taken off I imagine hematocrit will improve. He might feel better with transfusion of a unit or 2 of packed red blood cells as far as his fatigue goes but I will leave this up to Dr. Campbell. Current Visit: Yes (2) Personal history of colonic polyps Status: Acute Assessment and plan: This patient had a villous adenoma discovered back in 2011 and has not had repeat colonoscopy. We may be pursuing this this admission to wait until he is discharged from the hospital. Either way he will need a GoLYTELY prep. This may be easier to do as an inpatient. We will perform upper endoscopy today and see if we find anything and if not probably write for the colonoscopy to be done tomorrow, as he is 2 years overdue for recheck and is now having anemia. 02/28/17--the patient has refused colonoscopy. He states that he has had numerous checks. The most recent check that we have here in the hospital is from Dr. Gibbons 2011 but he states he had 1 of these done at [facility] in the interim and I suggest we get the old records from this which I have ordered. I did emphasize to him that the previous polyp removed in 2011 was a villous adenoma which carries about a 20-30% chance of malignant degeneration if it was not completely excised during the colonoscopy. From my standpoint there is no reason to keep him here in the hospital for further GI workup pending these results. He can be set up as an outpatient to review the records at some future date. Please let me know if I can be of further help but will sign off at this time as the GI workup is complete for now. Current Visit: Yes (3) Anemia Status: Acute Assessment and plan: We will check patient's iron studies and see if this is truly iron deficiency anemia or anemia of chronic disease--it is entirely likely that there may be multifactorial reasons for the anemia as well. Patient has been taking supplements including tea which raises the question of nutritional issues and other medications feeding into the situation at present. Will check CBC at this time as well. Not sure is been written for blood to be given as I do not see anything in the blood bank records. This is likely awaiting dialysis. 02/28/17--Dr. Campbell will decide whether or not additional blood should be given at this time, it is my understanding he wishes to wait and see how the patient responds to Epogen. This is certainly reasonable. Current Visit: Yes Gastroenterology - PN: Subj Interval history: Again, this patient refuses GoLYTELY prep yesterday stating that he had had a previous colonoscopy done at [facility] sometime in the last 2 years. I have ordered old records from this and we can review this at some point in the future when these arrive. From my standpoint his GI workup is done. His only complaint was some left upper quadrant pain when he was having dialysis yesterday and had to have his belly "rubbed out". He was also complaining of cramping in his hands likely because of the calcium flux/electrolyte shifts. He is asking about discharge. From a GI standpoint he can be discharged now. Exam (Progress Note) - Constitutional Vitals: Period Temp Pulse Resp BP Sys/Mohan Pulse Ox Last 24 Hr 97.8 F-98.5 F 67-91 12-20 124-185/68-88 93-100 General appearance: no acute distress - Head Head exam: Present: normocephalic - Eye Eye exam: Present: EOMI - Respiratory Respiratory exam: Present: clear to auscultation bilaterally. Absent: rhonchi, stridor, wheezes - GI/Abdominal GI/Abdominal exam: Present: normal bowel sounds, soft. Absent: distended, tenderness, rebound - Extremities Exam Extremities exam: Present: normal inspection - Neurological Exam Neurological exam: Present: alert, oriented X3, CN II-XII intact. Absent: motor sensory deficit - Psychiatric Psychiatric exam: Present: normal affect, normal mood - Skin Skin exam: Present: warm Results - Labs CBC & BMP: 02/27/17 07:57 02/27/17 07:57
[2017-02-28] MEDS: INSULIN REGULAR 100 UNIT/ML SUBCUT SCH ×3 (09:44→17:31)
[2017-02-28] MEDS: INSULIN GLARGINE 100 UNIT/ML SUBCUT SCH (09:45)
[2017-02-28] MEDS: CALCIUM (CARBONATE) 500 MG TABLET PO SCH (09:50)
[2017-02-28] MEDS: PANTOPRAZOLE 40 MG TABLET PO SCH (09:51)
[2017-02-28] MEDS: CALCIUM CARBONATE CHEW 500 MG TABLET PO SCH ×3 (09:51→17:33)
[2017-02-28] MEDS: CARVEDILOL 12.5 MG TABLET PO SCH (09:51)
[2017-02-28] MEDS: DOXAZOSIN 4 MG TABLET PO SCH (09:51)
[2017-02-28] MEDS: BRIMONIDINE 0.1% OPH SOLN 5 ML BOTTLE BOTH EYES SCH ×2 (09:52→15:00)
[2017-02-28] MEDS: amLODIPine 10 MG TABLET PO SCH (09:52)
[2017-02-28] MEDS: CLOBETASOL 0.05% CREAM 15 GM TUBE TOP SCH (09:52)
--- NOTE | 2017-02-28 12:25 | Dialysis Note ---
Dialysis Note - Dialysis Note Patient seen on hemodialysis he is tolerating this well will continue his treatment unchanged
[2017-02-28] MEDS ORDERED: SODIUM CHLORIDE 0.9% 250 ML IV PRN (12:26)
--- NOTE | 2017-02-28 12:34 | Discharge Summary ---
Hospital Course - Hospital Course Hospital Course: Mr. Person is a 57-year-old -[place] gentleman who admitted from my office earlier this week for dialysis initiation. The patient was feeling poorly and having a lot of swelling in his legs his calcium was very low and he was also having cramps in his legs. His hematocrit was also noted to be low around 21% and he had described having some black tarry stools about a week or so ago. General surgery was consulted they placed a tunneled dialysis catheter and the patient initiated dialysis he has done well with this and is feeling better his swelling in his legs is better and his cramping is better. Also started the patient on calcium carbonate with meals and at bedtime to decrease his phosphorus and to raise his calcium level. I am also going to transfuse the patient 2 units of packed red blood cells. The patient was seen by Dr. Sood with GI medicine and an upper endoscopy was done this revealed some duodenitis and gastritis, Dr. Sood felt that Protonix 40 mg a day would help heal this pathology. The patient was to have a colonoscopy however he apparently had had one of these recently done at [facility] he had had some villous adenoma seen by colonoscopy in 2011. Dr. Sood is going to follow-up the [facility] studies. At this time the patient has reached maximal hospital benefit and is to be discharged home he is to follow-up with outpatient dialysis at 4:30 PM on this Sunday at for [facility] in [place]. Diagnosis - Discharge Diagnosis (1) End stage renal disease Status: Acute (2) Anemia Status: Acute (3) Secondary hyperparathyroidism Status: Acute (4) Hypocalcemia Status: Acute (5) Diabetes mellitus Status: Acute (6) Hypertension Status: Acute (7) Volume overload Status: Acute Specialty Discharge - Follow Up or Referrals Follow up with: Georgi Cheek MD [Physician] - 2 Weeks (for Vein Mapping) Discharge Plan - Discharge Data Disposition: Disch To Home/Self Care Condition at Discharge: Stable Discharge Diet: advance to your usual diet Activity: resume usual activities as tolerated - Discharge Medications New Calcium Carbonate Chew [Tums] 2 tablet PO TID W/MEALS #200 tablet Clobetasol 0.05% Cream [Temovate 0.0% Cream] 1 applic TOP BID applic Epoetin Aba [Epogen] 8,000 unit IV WITH DIALYSIS PRN #0 vial PRN Reason: Dialysis Insulin Glargine [Lantus] 40 unit SUBCUT DAILY unit Latanoprost 0.005% Oph Soln [Xalatan 0.005% Oph Soln] 1 drop BOTH EYES BEDTIME bottle Pantoprazole Tab [Protonix Tab] 40 mg PO DAILY #90 tablet tiZANidine [Zanaflex] 4 mg PO TID PRN #0 tablet PRN Reason: Muscle Spasm Brimonidine 0.1% Oph Soln [Alphagan P 0.1% Oph Soln] 1 drop BOTH EYES TID bottle Carvedilol [Coreg] 12.5 mg PO BID tablet HYDROcodone/ACETAMIN 5-325 [Buxton 5-325] 1 tablet PO Q4H PRN #0 tablet PRN Reason: Pain Mild (1-3) Continue Oxycodone HCl/Acetaminophen [Percocet 10-325 mg Tablet] 1 each PO Q6H Doxazosin Mesylate [Cardura] 8 mg PO DAILY Atorvastatin [Lipitor] 20 mg PO DAILY amLODIPine [Norvasc] 10 mg PO DAILY Discontinued Pantoprazole Tab [Protonix Tab] 40 mg PO DAILY Latanoprost 0.005% Oph Soln [Xalatan 0.005% Oph Soln] 1 drop BOTH EYES BEDTIME Insulin Glargine [Lantus] 40 unit SUBCUT DAILY Ferrous Sulfate [Ferrous Sulfate Cap] 325 mg PO TID Clobetasol Propionate [Clobetasol 0.05% Cream] 1 applic TOP BID Carvedilol [Coreg] 12.5 mg PO BID Brimonidine 0.1% Oph Soln [Alphagan P 0.1% Oph Soln] 1 drop BOTH EYES TID Tizanidine HCl [Zanaflex] 4 mg PO TID PRN PRN Reason: Muscle Spasm - Follow Up or Referral Follow Up: Georgi Cheek MD [Physician] - 2 Weeks (for Vein Mapping) - Forms/Instructions Additional Discharge Instructions: Follow-up with [facility] dialysis this Sunday at 4:30 PM Exam - Constitutional Vitals: Period Temp Pulse Resp BP Sys/Mohan Pulse Ox Last 24 Hr 98.1 F-98.5 F 76-98 16-18 132-161/70-87 93-99 Discharge Results Procedures and tests throughout hospitalization: Pending Orders 02/28/17 12:26 Red Blood Cells Leuko Red Routine Type and Screen Routine Labs on day of discharge: Labs from last 24 hours 02/28/17 02/28/17 02/27/17 11:04 06:49 19:55 POC Glucose 299 H 127 H 224 H 02/27/17 18:17 POC Glucose 132 H DS: Provider Date of admission: 02/26/17 11:41 Primary care physician: Abram Batres MD Attending physician on admission: Yordan Campbell MD Consults: 02/26/17 15:32 Consult to Physician [CONS] Routine Comment: GI medicine - eval anemia with h/o black stools Consulting Provider: Richard Sood Person Notified: MADELYN Date Notified: 02/27/17 Time Notified: 09:56 02/26/17 15:35 Consult to Case Mgmt/Social Srvs [CONS] Routine Reason for Case Mgmt/Social Srvs: Dialysis 02/26/17 16:34 Consult to Physician [CONS] Routine Comment: Consulting Provider: Georgi Cheek Person Notified: MD richardson Date Notified: 02/26/17 Time Notified: 12:30 02/27/17 06:52 Consult to Anesthesiology [CONS] Routine Consulting Provider: Reason for Anesthesiology: Pre-op Clearance Discharging clinician: Yordan Campbell MD
--- NOTE | 2017-02-28 12:44 | Pathology Report from [facility] ---
[facility] [place] ACCESSION # : [id number] PATIENT NAME : Dejah Person ORDERING DR : Richard Sood MD CLINICAL HX: Anemia POST-OP DX: #1 Check for Sprue #2 Gastritis SPECIMEN INFO: #1 Duodenal for Sprue #2 KHAI GROSS DESCRIPTION: #1 Received in formalin labeled with the patients name DEJAH PERSON and #1 consists of three cooper mucosal tissue fragments measuring collectively 0.8 x 0.3 cm. Submitted in cassette #1.#2 Received in formalin labeled with the patients name DEJAH PERSON and #2 consists of an aggregate of cooper mucosal tissue measuring 1.0 x 0.2 cm. Submitted in cassette #2. 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 No evidence of granulomas, parasites, tumor or celiac disease.#2 KHAI BIOPSIES: Chronic gastritis, focally active with intestinal metaplasia. Special stain for H. pylori POSITIVE. COLLECTED DATE: 02/27/2017 [facility] REPORT DATE: 02/28/2017 ELECTRONICALLY SIGNED BY: Yuliya Bonds M.D. 02/28/2017 - 10:21:28 [facility]ITALBrian
[2017-02-28 16:53] VITALS: BP 162/80
--- NOTE | 2017-02-28 17:50 | Event Note ---
The patient's pathology came back positive for Helicobacter pylori. I have written the patient to get a combination of clarithromycin 500 mg twice daily for 10 days in addition to the amoxicillin 500 mg daily 10 days. The dose is been reduced in order to cover him for his penicillin buildup that will occur with his significant renal dysfunction. Dr. Campbell is already been kind enough to write for the Protonix that should cover the patient completely for his Helicobacter pylori infection. These scripts were given to the patient upon discharge.
== END 2017-02-28 19:00 | disposition home or self-care (01) | DRG 291 ==
LOC: N.5E 11:41
PROVIDERS: ADMIT Internal Medicine Nephrology; ATTEND Internal Medicine Nephrology

== ENCOUNTER 2017-09-22 19:22 | Inpatient (IN) ==
[2017-09-22] MEDS ORDERED: ACETAMINOPHEN 500 MG TABLET PO STA (21:14)
[2017-09-22 21:41] LABS: Basophils % 0.3 % (0.0-0.8); Eosinophils # 0.1 10*3/uL (0.0-0.87); Eosinophils % 1.1 % (0.00-10.9); Hemoglobin 11.2 GM/DL (14.0-18.0); Immature Granulocytes % 0.4 %; Immature Granulocytes Absolute 0.05 #; Lymphocytes # 1.3 10*3/uL (1.4-4.0); Lymphocytes % 11.1 % (21.2-54.2); Mean Corpuscular HGB Conc 29.5 GM/DL (32-36); Mean Corpuscular Hemoglobin 24 PG (27-34); Mean Corpuscular Volume 79.7 FL (87-102); Monocytes % 8.8 % (1.7-12.7); NRBC # 0.14 10*3/uL; Neutrophils # 8.9 10*3/uL (1.4-7.4); Neutrophils % 78.3 % (38.7-73.9); Platelet Count 177 T/CUMM (130-400); Red Blood Count 4.77 MC/CUMM (3.8-5.5); Red Cell Distribution Width 23.6 % (9.3-17.3); White Blood Count 11.4 T/CUMM (4-12)
[2017-09-22] MEDS ORDERED: PROMETHAZINE 25 MG/1 ML VIAL ONE (21:44)
[2017-09-22] MEDS ORDERED: ACETAMINOPHEN 500 MG TABLET ONE (21:49)
[2017-09-22] MEDS ORDERED: ONDANSETRON 4 MG/2 ML VIAL IV STA (21:57)
[2017-09-22] MEDS ORDERED: PIPERACILLIN/TAZOBACTAM 2,250 MG in SODIUM CHLORIDE 0.9% 100 ML IV STA (21:57)
[2017-09-22 21:59] LABS: Albumin 3.8 G/DL (3.4-5.0); Calcium 8.2 MG/DL (8.5-10.1); Osmolality,Calculated 286.4 MOS/KG (273-304); Total Protein 7.5 G/DL (6.4-8.3)
[2017-09-22] MEDS ORDERED: ONDANSETRON 4 MG/2 ML VIAL ONE (21:59)
[2017-09-22] MEDS ORDERED: SODIUM CHLORIDE 0.9% 100 ML IV ONE (22:06)
[2017-09-22] MEDS ORDERED: PIPERACILLIN/TAZOBACTAM 3,375 MG VIAL IV ONE (22:06)
[2017-09-22] MEDS ORDERED: PIPERACILLIN/TAZOBACTAM 3,375 MG in SODIUM CHLORIDE 0.9% 100 ML IV STA (22:09)
[2017-09-22 23:00] LABS: Elliptocytes 2+; Ovalocytes 2+; Platelet Estimate Normal
[2017-09-22 23:01] LABS: Polychromasia Few
[2017-09-22 23:02] LABS: Apearance,Urine CLEAR (Clear); Bacteria,Urine Occasional /HPF (Few); Bilirubin,Urine Negative (Negative); Blood, Urine Negative (Negative); Glucose,Urine (UA) 50 mg/dL (Negative); Hyaline Casts,Urine 5 /LPF (0-3); Ketones,Urine Negative (Negative); Nitrite,Urine Negative (Negative); Protein,Urine >=500 MG/DL; RBC,Urine 1 /HPF (0-4); Sperm,Urine Occasional /HPF (Negative); Squamous Epithelial Cell,Urine Occasional /HPF (0-10); Urine Color Yellow (Yellow); Urine Specific Gravity 1.012 (1.001-1.035); WBC,Urine 1 /HPF (0-6)
[2017-09-22] MEDS ORDERED: ONDANSETRON 4 MG/2 ML VIAL IV PRN (23:05)
[2017-09-22] MEDS ORDERED: VANCOMYCIN INJ 2,000 MG in SODIUM CHLORIDE 0.9% 500 ML IV STA (23:15)
[2017-09-22] MEDS ORDERED: VANCOMYCIN INJ 750 MG in SODIUM CHLORIDE 0.9% 150 ML IV PRN (23:29)
[2017-09-22] MEDS ORDERED: DEXTROSE 50% 25 GM/50 ML VIAL IV PRN (23:37)
[2017-09-22] MEDS ORDERED: GLUCAGON 1 MG VIAL IM PRN (23:37)
[2017-09-22] MEDS ORDERED: VANCOMYCIN INJ 2,000 MG in SODIUM CHLORIDE 0.9% 500 ML IV ONE (23:45)
[2017-09-23] MEDS: INSULIN LISPRO 100 UNIT/ML SUBCUT SCH ×4 (00:31→17:13)
[2017-09-23 06:33] LABS: Basophils % 0.2 % (0.0-0.8); Eosinophils # 0.1 10*3/uL (0.0-0.87); Eosinophils % 0.3 % (0.00-10.9); Hematocrit 34.3 VOL% (42.0-52.0); Hemoglobin 10.2 GM/DL (14.0-18.0); Immature Granulocytes % 0.9 %; Immature Granulocytes Absolute 0.15 #; Lymphocytes # 0.9 10*3/uL (1.4-4.0); Mean Corpuscular HGB Conc 29.7 GM/DL (32-36); Mean Corpuscular Hemoglobin 24 PG (27-34); Mean Corpuscular Volume 79.4 FL (87-102); Monocytes # 1.3 10*3/uL (0.11-0.8); Monocytes % 7.6 % (1.7-12.7); Neutrophils # 14.7 10*3/uL (1.4-7.4); Platelet Count 169 T/CUMM (130-400); Red Blood Count 4.32 MC/CUMM (3.8-5.5); Red Cell Distribution Width 23.8 % (9.3-17.3)
[2017-09-23 07:02] LABS: Band Neutrophils 6 % (0-10); Calcium 7.8 MG/DL (8.5-10.1); Elliptocytes Few; Giant Platelets Few; Hypochromasia 1+; Lymphocytes 3 % (20-55); Macrocytosis Slight; Osmolality,Calculated 289.5 MOS/KG (273-304); Platelet Estimate Normal; Polychromasia Slight; Potassium 3.5 MMOL/L (3.5-5.1); Segmented Neutrophils 85 % (50-85); Total Cells Counted 100
[2017-09-23] MEDS ORDERED: GENTAMICIN INJ 100 MG in PREMIX 1 EACH IV ONE (09:08)
[2017-09-23] MEDS: amLODIPine 10 MG TABLET PO SCH (15:51)
[2017-09-23] MEDS: BRIMONIDINE 0.1% OPH SOLN 5 ML BOTTLE BOTH EYES SCH ×2 (16:26→22:01)
[2017-09-23] MEDS: ACETAMINOPHEN 325 MG TABLET PO PRN (17:13)
[2017-09-23] MEDS: CARVEDILOL 12.5 MG TABLET PO SCH (22:01)
[2017-09-23] MEDS: CLOBETASOL 0.05% CREAM 15 GM TUBE TOP SCH ×2 (22:01→22:03)
[2017-09-24] MEDS: ACETAMINOPHEN 325 MG TABLET PO PRN ×3 (00:23→16:30)
[2017-09-24] MEDS: INSULIN LISPRO 100 UNIT/ML SUBCUT SCH ×4 (01:36→18:44)
[2017-09-24 06:39] LABS: Basophils % 0.2 % (0.0-0.8); Eosinophils # 0.2 10*3/uL (0.0-0.87); Eosinophils % 1.1 % (0.00-10.9); Hemoglobin 10.2 GM/DL (14.0-18.0); Immature Granulocytes % 0.7 %; Lymphocytes # 0.9 10*3/uL (1.4-4.0); Lymphocytes % 6.4 % (21.2-54.2); Mean Corpuscular Hemoglobin 24 PG (27-34); Mean Corpuscular Volume 79.1 FL (87-102); Monocytes % 7.1 % (1.7-12.7); NRBC # 0.03 10*3/uL; Neutrophils # 11.5 10*3/uL (1.4-7.4); Neutrophils % 84.5 % (38.7-73.9); Platelet Count 154 T/CUMM (130-400); Red Cell Distribution Width 22.6 % (9.3-17.3); White Blood Count 13.6 T/CUMM (4-12)
[2017-09-24 07:04] LABS: Calcium 7.5 MG/DL (8.5-10.1); Osmolality,Calculated 284.1 MOS/KG (273-304)
[2017-09-24 07:05] LABS: Elliptocytes Few; Giant Platelets Few; Hypochromasia 1+; Microcytosis Slight; Platelet Estimate Normal
[2017-09-24] MEDS: amLODIPine 10 MG TABLET PO SCH (08:37)
[2017-09-24] MEDS: CARVEDILOL 12.5 MG TABLET PO SCH ×2 (08:38→21:08)
[2017-09-24] MEDS: PANTOPRAZOLE 40 MG TABLET PO SCH (08:38)
[2017-09-24] MEDS: CLOBETASOL 0.05% CREAM 15 GM TUBE TOP SCH ×2 (08:38→21:00)
[2017-09-24] MEDS: DOXAZOSIN 4 MG TABLET PO SCH (08:38)
[2017-09-24] MEDS: BRIMONIDINE 0.1% OPH SOLN 5 ML BOTTLE BOTH EYES SCH ×2 (08:39→21:00)
[2017-09-24] MEDS ORDERED: LIDOCAINE 2% 20 ML VIAL MISC INJ ONE (10:00)
[2017-09-24] MEDS ORDERED: HEPARIN 10,000 UNIT/10 ML VIAL IV PRN (13:22)
[2017-09-24] MEDS ORDERED: ZALEPLON 5 MG CAPSULE PO ONE (20:15)
[2017-09-24] MEDS ORDERED: VANCOMYCIN INJ 750 MG in SODIUM CHLORIDE 0.9% 150 ML IV ONE (21:00)
[2017-09-24] MEDS: RIFAMPIN 300 MG CAPSULE PO SCH (21:07)
[2017-09-25] MEDS: INSULIN LISPRO 100 UNIT/ML SUBCUT SCH ×4 (00:26→18:22)
[2017-09-25] MEDS: ACETAMINOPHEN 325 MG TABLET PO PRN ×2 (06:00→20:40)
[2017-09-25 07:08] LABS: Basophils % 0.1 % (0.0-0.8); Eosinophils # 0.3 10*3/uL (0.0-0.87); Eosinophils % 2.8 % (0.00-10.9); Hematocrit 32.1 VOL% (42.0-52.0); Hemoglobin 9.4 GM/DL (14.0-18.0); Immature Granulocytes % 0.5 %; Immature Granulocytes Absolute 0.05 #; Lymphocytes # 0.9 10*3/uL (1.4-4.0); Lymphocytes % 9.2 % (21.2-54.2); Mean Corpuscular HGB Conc 29.3 GM/DL (32-36); Mean Corpuscular Hemoglobin 23 PG (27-34); Mean Corpuscular Volume 79.7 FL (87-102); NRBC # 0.03 10*3/uL; Neutrophils % 76.4 % (38.7-73.9); Platelet Count 143 T/CUMM (130-400); Red Blood Count 4.03 MC/CUMM (3.8-5.5); Red Cell Distribution Width 22.3 % (9.3-17.3); White Blood Count 9.2 T/CUMM (4-12)
[2017-09-25 07:18] LABS: Calcium 7.1 MG/DL (8.5-10.1); Magnesium 1.9 MG/DL (1.8-2.4); Osmolality,Calculated 279.1 MOS/KG (273-304); Potassium 3.9 MMOL/L (3.5-5.1)
[2017-09-25 08:22] LABS: Hypochromasia 2+; Microcytosis 1+
[2017-09-25 08:23] LABS: Elliptocytes 2+; Platelet Estimate Adequate; Target Cells Slight; Tear Drop Cells Slight
[2017-09-25] MEDS ORDERED: LIDOCAINE 1%/EPI INJ 20 ML VIAL ONE (08:55)
[2017-09-25] MEDS ORDERED: PROPOFOL 200 MG/20 ML VIAL IV ONE (09:37)
[2017-09-25] MEDS ORDERED: MIDAZOLAM 2 MG/2 ML VIAL ONE (09:37)
[2017-09-25] MEDS ORDERED: fentaNYL 100 MCG/2 ML VIAL ONE (09:38)
[2017-09-25] MEDS: DOXAZOSIN 4 MG TABLET PO SCH (10:18)
[2017-09-25] MEDS: amLODIPine 10 MG TABLET PO SCH (10:18)
[2017-09-25] MEDS: PANTOPRAZOLE 40 MG TABLET PO SCH (10:19)
[2017-09-25] MEDS: CARVEDILOL 12.5 MG TABLET PO SCH ×2 (10:19→20:41)
[2017-09-25] MEDS: RIFAMPIN 300 MG CAPSULE PO SCH ×2 (10:19→20:40)
[2017-09-25] MEDS: CLOBETASOL 0.05% CREAM 15 GM TUBE TOP SCH ×2 (10:22→20:44)
[2017-09-25] MEDS: BRIMONIDINE 0.1% OPH SOLN 5 ML BOTTLE BOTH EYES SCH (20:44)
[2017-09-26] MEDS: INSULIN LISPRO 100 UNIT/ML SUBCUT SCH ×4 (00:56→17:43)
[2017-09-26 07:12] LABS: Basophils % 0.2 % (0.0-0.8); Eosinophils # 0.4 10*3/uL (0.0-0.87); Eosinophils % 8.9 % (0.00-10.9); Hematocrit 33.6 VOL% (42.0-52.0); Immature Granulocytes % 0.4 %; Immature Granulocytes Absolute 0.02 #; Lymphocytes # 0.8 10*3/uL (1.4-4.0); Lymphocytes % 15.6 % (21.2-54.2); Mean Corpuscular HGB Conc 29.8 GM/DL (32-36); Mean Corpuscular Hemoglobin 23 PG (27-34); Mean Corpuscular Volume 78.5 FL (87-102); Monocytes # 0.5 10*3/uL (0.11-0.8); Monocytes % 9.9 % (1.7-12.7); Neutrophils # 3.2 10*3/uL (1.4-7.4); Platelet Count 158 T/CUMM (130-400); Red Blood Count 4.28 MC/CUMM (3.8-5.5); Red Cell Distribution Width 22.2 % (9.3-17.3)
[2017-09-26 07:28] LABS: Elliptocytes 1+; Hypochromasia 1+
[2017-09-26 07:29] LABS: Giant Platelets Few; Microcytosis Slight; Platelet Estimate Normal
[2017-09-26 07:53] LABS: Calcium 6.5 MG/DL (8.5-10.1); Magnesium 2.3 MG/DL (1.8-2.4); Potassium 4.2 MMOL/L (3.5-5.1)
[2017-09-26] MEDS: DOXAZOSIN 4 MG TABLET PO SCH (09:23)
[2017-09-26] MEDS: CARVEDILOL 12.5 MG TABLET PO SCH ×2 (09:23→20:53)
[2017-09-26] MEDS: PANTOPRAZOLE 40 MG TABLET PO SCH (09:23)
[2017-09-26] MEDS: RIFAMPIN 300 MG CAPSULE PO SCH ×2 (09:23→20:53)
[2017-09-26] MEDS: amLODIPine 10 MG TABLET PO SCH (09:23)
[2017-09-26] MEDS: CLOBETASOL 0.05% CREAM 15 GM TUBE TOP SCH ×2 (09:24→20:54)
[2017-09-26] MEDS ORDERED: diphenhydrAMINE CAP 25 MG CAPSULE PO PRN (12:41)
[2017-09-26] MEDS ORDERED: diphenhydrAMINE 50 MG/1 ML VIAL IV ONE (15:45)
[2017-09-26] MEDS: BRIMONIDINE 0.1% OPH SOLN 5 ML BOTTLE BOTH EYES SCH (20:53)
[2017-09-27] MEDS: INSULIN LISPRO 100 UNIT/ML SUBCUT SCH ×4 (01:25→18:02)
[2017-09-27 07:35] LABS: Calcium 6.7 MG/DL (8.5-10.1); Magnesium 2.2 MG/DL (1.8-2.4); Osmolality,Calculated 292.8 MOS/KG (273-304); Potassium 4.5 MMOL/L (3.5-5.1)
[2017-09-27 07:44] LABS: Basophils % 0.4 % (0.0-0.8); Eosinophils # 0.5 10*3/uL (0.0-0.87); Eosinophils % 9.2 % (0.00-10.9); Hematocrit 34.2 VOL% (42.0-52.0); Immature Granulocytes % 0.4 %; Immature Granulocytes Absolute 0.02 #; Lymphocytes # 0.9 10*3/uL (1.4-4.0); Lymphocytes % 17.5 % (21.2-54.2); Mean Corpuscular HGB Conc 29.2 GM/DL (32-36); Mean Corpuscular Hemoglobin 23 PG (27-34); Mean Corpuscular Volume 77.2 FL (87-102); Monocytes # 0.6 10*3/uL (0.11-0.8); Monocytes % 12.5 % (1.7-12.7); Neutrophils # 3.1 10*3/uL (1.4-7.4); Platelet Count 176 T/CUMM (130-400); Red Blood Count 4.43 MC/CUMM (3.8-5.5); White Blood Count 5.1 T/CUMM (4-12)
[2017-09-27 07:58] LABS: Elliptocytes 1+; Giant Platelets Few; Hypochromasia 1+; Microcytosis Slight; Platelet Estimate Normal
[2017-09-27] MEDS: amLODIPine 10 MG TABLET PO SCH (09:19)
[2017-09-27] MEDS: CARVEDILOL 12.5 MG TABLET PO SCH ×2 (09:20→22:12)
[2017-09-27] MEDS: PANTOPRAZOLE 40 MG TABLET PO SCH (09:20)
[2017-09-27] MEDS: RIFAMPIN 300 MG CAPSULE PO SCH ×2 (09:20→22:12)
[2017-09-27] MEDS: diphenhydrAMINE CAP 25 MG CAPSULE PO PRN ×2 (09:20→22:14)
[2017-09-27] MEDS: CLOBETASOL 0.05% CREAM 15 GM TUBE TOP SCH ×2 (09:20→22:13)
[2017-09-27] MEDS: DOXAZOSIN 4 MG TABLET PO SCH (09:20)
[2017-09-27] MEDS: BRIMONIDINE 0.1% OPH SOLN 5 ML BOTTLE BOTH EYES SCH (22:35)
[2017-09-28] MEDS: INSULIN LISPRO 100 UNIT/ML SUBCUT SCH ×4 (00:46→17:18)
[2017-09-28 03:32] LABS: Basophils % 0.6 % (0.0-0.8); Eosinophils # 0.4 10*3/uL (0.0-0.87); Eosinophils % 7.6 % (0.00-10.9); Hematocrit 32.8 VOL% (42.0-52.0); Hemoglobin 9.7 GM/DL (14.0-18.0); Immature Granulocytes % 0.4 %; Immature Granulocytes Absolute 0.02 #; Lymphocytes # 1.1 10*3/uL (1.4-4.0); Lymphocytes % 23.8 % (21.2-54.2); Mean Corpuscular HGB Conc 29.6 GM/DL (32-36); Mean Corpuscular Hemoglobin 23 PG (27-34); Mean Corpuscular Volume 77.2 FL (87-102); Monocytes # 0.6 10*3/uL (0.11-0.8); Monocytes % 12.6 % (1.7-12.7); Neutrophils # 2.5 10*3/uL (1.4-7.4); Platelet Count 218 T/CUMM (130-400); Red Blood Count 4.25 MC/CUMM (3.8-5.5); Red Cell Distribution Width 22.9 % (9.3-17.3); White Blood Count 4.6 T/CUMM (4-12)
[2017-09-28 04:15] LABS: Calcium 6.5 MG/DL (8.5-10.1); Magnesium 2.3 MG/DL (1.8-2.4); Osmolality,Calculated 295.8 MOS/KG (273-304); Potassium 4.7 MMOL/L (3.5-5.1)
[2017-09-28 04:25] LABS: Elliptocytes 1+; Hypochromasia 1+; Platelet Estimate Adequate
[2017-09-28 04:26] LABS: Giant Platelets Few; Microcytosis Slight
[2017-09-28] MEDS: CARVEDILOL 12.5 MG TABLET PO SCH ×2 (08:29→20:56)
[2017-09-28] MEDS: amLODIPine 10 MG TABLET PO SCH (08:29)
[2017-09-28] MEDS: DOXAZOSIN 4 MG TABLET PO SCH (08:29)
[2017-09-28] MEDS: PANTOPRAZOLE 40 MG TABLET PO SCH (08:29)
[2017-09-28] MEDS: CLOBETASOL 0.05% CREAM 15 GM TUBE TOP SCH ×3 (08:30→20:56)
[2017-09-28] MEDS: RIFAMPIN 300 MG CAPSULE PO SCH ×2 (08:30→20:56)
[2017-09-28] MEDS ORDERED: EPOETIN ALFA 10,000 UNIT/1 ML VIAL IV PRN (12:06)
[2017-09-28] MEDS ORDERED: HEPARIN 5,000 UNIT/1 ML VIAL ONE (12:44)
[2017-09-28] MEDS ORDERED: BUPIVACAINE 0.25% 50 ML VIAL ONE (12:44)
[2017-09-28] MEDS ORDERED: MIDAZOLAM 2 MG/2 ML VIAL ONE (15:13)
[2017-09-28] MEDS ORDERED: PROPOFOL 200 MG/20 ML VIAL IV ONE (15:13)
[2017-09-28] MEDS ORDERED: fentaNYL 100 MCG/2 ML VIAL ONE (15:14)
[2017-09-28] MEDS ORDERED: SODIUM CHLORIDE 0.9% 100 ML IV ONE (15:14)
[2017-09-28] MEDS ORDERED: ONDANSETRON 4 MG/2 ML VIAL ONE (15:14)
[2017-09-28] MEDS ORDERED: LABETALOL 100 MG/20 ML VIAL IV ONE (15:14)
[2017-09-28] MEDS: diphenhydrAMINE CAP 25 MG CAPSULE PO PRN ×2 (17:24→20:56)
[2017-09-28] MEDS: MOISTURIZING CREAM (EUCERIN) 113 GM JAR TOP PRN (20:57)
[2017-09-28] MEDS: BRIMONIDINE 0.1% OPH SOLN 5 ML BOTTLE BOTH EYES SCH (21:11)
[2017-09-28] MEDS: LATANOPROST 0.005% OPH SOLN 2.5 ML BOTTLE BOTH EYES SCH (21:11)
[2017-09-29] MEDS: INSULIN LISPRO 100 UNIT/ML SUBCUT SCH ×4 (00:41→17:36)
[2017-09-29] MEDS: diphenhydrAMINE CAP 25 MG CAPSULE PO PRN ×2 (04:25→22:04)
[2017-09-29] MEDS: RIFAMPIN 300 MG CAPSULE PO SCH ×2 (08:29→22:03)
[2017-09-29] MEDS: CLOBETASOL 0.05% CREAM 15 GM TUBE TOP SCH ×2 (08:29→22:03)
[2017-09-29] MEDS: PANTOPRAZOLE 40 MG TABLET PO SCH (08:29)
[2017-09-29] MEDS: amLODIPine 10 MG TABLET PO SCH (08:29)
[2017-09-29] MEDS: DOXAZOSIN 4 MG TABLET PO SCH (08:29)
[2017-09-29] MEDS: CARVEDILOL 12.5 MG TABLET PO SCH ×2 (08:29→22:04)
[2017-09-29] MEDS: MOISTURIZING CREAM (EUCERIN) 113 GM JAR TOP PRN (22:03)
[2017-09-29] MEDS: BRIMONIDINE 0.1% OPH SOLN 5 ML BOTTLE BOTH EYES SCH (22:05)
[2017-09-29] MEDS: LATANOPROST 0.005% OPH SOLN 2.5 ML BOTTLE BOTH EYES SCH (22:05)
[2017-09-30] MEDS: INSULIN LISPRO 100 UNIT/ML SUBCUT SCH ×3 (00:07→13:39)
[2017-09-30] MEDS: diphenhydrAMINE CAP 25 MG CAPSULE PO PRN (04:42)
[2017-09-30] MEDS: CARVEDILOL 12.5 MG TABLET PO SCH (08:12)
[2017-09-30] MEDS: amLODIPine 10 MG TABLET PO SCH (08:12)
[2017-09-30] MEDS: DOXAZOSIN 4 MG TABLET PO SCH (08:12)
[2017-09-30] MEDS: RIFAMPIN 300 MG CAPSULE PO SCH (08:13)
[2017-09-30] MEDS: PANTOPRAZOLE 40 MG TABLET PO SCH (08:13)
[2017-09-30] MEDS: CLOBETASOL 0.05% CREAM 15 GM TUBE TOP SCH (08:13)
[2017-09-30 15:59] VITALS: BP 145/83
== END 2017-09-30 17:17 | disposition home or self-care (01) | DRG 252 ==
LOC: N.ED 19:22 → N.EDINP 22:50 → SUATTDRO 22:50 → N.5E 23:45
PROVIDERS: ADMIT Internal Medicine; ATTEND Hospitalist

== ENCOUNTER 2019-01-23 06:11 | Observation (INO) ==
[~2019-01-23 06:11] MED LIST: ceFAZolin 1,000 MG in SYRINGE 1 EACH IV ONE
[2019-01-23] MEDS ORDERED: HEPARIN 5,000 UNIT/1 ML VIAL ONE (06:19)
[2019-01-23] MEDS ORDERED: BUPIVACAINE 0.5% 50 ML VIAL ONE (06:19)
[2019-01-23] MEDS ORDERED: LIDOCAINE 1%/EPI INJ 20 ML VIAL ONE (06:20)
[2019-01-23] MEDS: SODIUM CHLORIDE 0.9% 250 ML IV SCH ×2 (06:35→22:29)
[2019-01-23 07:35] LABS: Hemoglobin 9.2 GM/DL (14.0-18.0)
[2019-01-23] MEDS ORDERED: ceFAZolin 1,000 MG VIAL ONE (10:15)
[2019-01-23] MEDS ORDERED: PROPOFOL 200 MG/20 ML VIAL IV ONE (10:25)
[2019-01-23] MEDS ORDERED: MIDAZOLAM 2 MG/2 ML VIAL ONE (10:25)
[2019-01-23] MEDS ORDERED: LIDOCAINE 1% 5 ML VIAL ONE (10:25)
[2019-01-23] MEDS ORDERED: fentaNYL 100 MCG/2 ML VIAL ONE (10:25)
[2019-01-23] MEDS ORDERED: ONDANSETRON 4 MG/2 ML VIAL ONE ×2 (10:25→11:54)
[2019-01-23] MEDS ORDERED: HYDROmorphone 2 MG/1 ML VIAL IV STA (11:48)
[2019-01-23] MEDS ORDERED: HYDROmorphone 2 MG/1 ML VIAL ONE (11:50)
[2019-01-23] MEDS ORDERED: ONDANSETRON 4 MG/2 ML VIAL IV ONE (12:00)
[2019-01-23] MEDS ORDERED: ALBUTEROL/IPRATROPIUM 3 ML NEB RESP TX PRN (12:59)
[2019-01-23] MEDS ORDERED: BISACODYL 5 MG TABLET PO PRN (12:59)
[2019-01-23] MEDS ORDERED: KETOROLAC 10 MG TABLET PO PRN (12:59)
[2019-01-23] MEDS ORDERED: ACETAMINOPHEN 325 MG TABLET PO PRN (12:59)
[2019-01-23] MEDS ORDERED: IBUPROFEN 400 MG TABLET PO PRN (12:59)
[2019-01-23] MEDS ORDERED: ONDANSETRON 4 MG/2 ML VIAL IV PRN (12:59)
[2019-01-23] MEDS ORDERED: MEPERIDINE 50 MG TABLET PO PRN ×2 (13:02)
[2019-01-23] MEDS ORDERED: CETIRIZINE 10 MG TABLET PO PRN (17:35)
[2019-01-23] MEDS: CALCIUM ACETATE 667 MG CAPSULE PO SCH (18:00)
[2019-01-23] MEDS: MEPERIDINE 25 MG/1 ML VIAL IV PRN ×2 (18:21→21:42)
[2019-01-23] MEDS: FLUTICASONE 50 MCG NASAL SPRAY 16 GM BOTTLE BOTH NARES SCH (21:12)
[2019-01-23] MEDS: CARVEDILOL 12.5 MG TABLET PO SCH (22:28)
[2019-01-23] MEDS: CLOBETASOL 0.05% CREAM 15 GM TUBE TOP SCH (22:28)
[2019-01-23] MEDS: BRIMONIDINE 0.1% OPH SOLN 5 ML BOTTLE BOTH EYES SCH (22:28)
[2019-01-23] MEDS: LATANOPROST 0.005% OPH SOLN 2.5 ML BOTTLE BOTH EYES SCH (22:28)
[2019-01-23] MEDS: diphenhydrAMINE CAP 50 MG CAPSULE PO SCH (22:28)
[2019-01-24] MEDS: MEPERIDINE 25 MG/1 ML VIAL IV PRN ×4 (04:53→20:27)
[2019-01-24 05:58] LABS: Calcium 8.7 MG/DL (8.5-10.1); Osmolality,Calculated 279.2 MOS/KG (273-304)
[2019-01-24 06:09] LABS: Basophils % 0.2 % (0.0-0.8); Eosinophils # 0.1 10*3/uL (0.0-0.87); Eosinophils % 1.3 % (0.00-10.9); Hematocrit 31.7 VOL% (42.0-52.0); Immature Granulocytes % 0.3 %; Immature Granulocytes Absolute 0.02 #; Lymphocytes % 16.4 % (21.2-54.2); Mean Corpuscular Hemoglobin 23 PG (27-34); Mean Corpuscular Volume 79.3 FL (87-102); Monocytes # 0.6 10*3/uL (0.11-0.8); Monocytes % 9.4 % (1.7-12.7); Neutrophils # 4.3 10*3/uL (1.4-7.4); Neutrophils % 72.4 % (38.7-73.9); Platelet Count 156 T/CUMM (130-400); Red Cell Distribution Width 18.8 % (9.3-17.3); White Blood Count 5.9 T/CUMM (4-12)
[2019-01-24 06:11] LABS: Hemoglobin 9.2 GM/DL (14.0-18.0)
[2019-01-24] MEDS: DOXAZOSIN 4 MG TABLET PO SCH (09:28)
[2019-01-24] MEDS: PANTOPRAZOLE 40 MG TABLET PO SCH (09:28)
[2019-01-24] MEDS: CARVEDILOL 12.5 MG TABLET PO SCH ×2 (09:28→20:34)
[2019-01-24] MEDS: amLODIPine 10 MG TABLET PO SCH (09:28)
[2019-01-24] MEDS: FERROUS SULFATE 325 MG TABLET PO SCH (09:28)
[2019-01-24] MEDS: BRIMONIDINE 0.1% OPH SOLN 5 ML BOTTLE BOTH EYES SCH ×3 (09:28→20:37)
[2019-01-24] MEDS ORDERED: hydrALAZINE 25 MG TABLET ONE (09:37)
[2019-01-24] MEDS: FLUTICASONE 50 MCG NASAL SPRAY 16 GM BOTTLE BOTH NARES SCH ×2 (09:43→20:41)
[2019-01-24] MEDS: CLOBETASOL 0.05% CREAM 15 GM TUBE TOP SCH ×2 (09:43→20:34)
[2019-01-24] MEDS ORDERED: diphenhydrAMINE CAP 50 MG CAPSULE PO PRN (11:44)
[2019-01-24] MEDS ORDERED: diphenhydrAMINE CAP 25 MG CAPSULE PO PRN (11:44)
[2019-01-24] MEDS: SODIUM CHLORIDE 0.9% 250 ML IV SCH ×2 (16:02→21:41)
[2019-01-24] MEDS: CALCIUM ACETATE 667 MG CAPSULE PO SCH (18:00)
[2019-01-24] MEDS: diphenhydrAMINE CAP 50 MG CAPSULE PO SCH (20:34)
[2019-01-24] MEDS: LATANOPROST 0.005% OPH SOLN 2.5 ML BOTTLE BOTH EYES SCH (20:35)
[2019-01-25] MEDS: MEPERIDINE 25 MG/1 ML VIAL IV PRN ×2 (03:12→14:00)
[2019-01-25 07:38] VITALS: BP 170/77
[2019-01-25] MEDS: FERROUS SULFATE 325 MG TABLET PO SCH (14:16)
[2019-01-25] MEDS: amLODIPine 10 MG TABLET PO SCH (14:17)
[2019-01-25] MEDS: PANTOPRAZOLE 40 MG TABLET PO SCH (14:17)
[2019-01-25] MEDS: DOXAZOSIN 4 MG TABLET PO SCH (14:17)
[2019-01-25] MEDS: BRIMONIDINE 0.1% OPH SOLN 5 ML BOTTLE BOTH EYES SCH (14:18)
[2019-01-25] MEDS: CARVEDILOL 12.5 MG TABLET PO SCH (14:18)
[2019-01-25] MEDS: FLUTICASONE 50 MCG NASAL SPRAY 16 GM BOTTLE BOTH NARES SCH (14:18)
[2019-01-25] MEDS: CLOBETASOL 0.05% CREAM 15 GM TUBE TOP SCH (14:18)
== END 2019-01-25 15:06 | disposition home or self-care (01) ==
LOC: N.OR 06:11 → N.SDSINP 06:16 → INTOOBSV 12:59 → N.SDSINP 12:59 → N.3E 14:46
PROVIDERS: ADMIT Surgery; ATTEND Surgery
PROC: VAVDCFI (2019-01-23 08:18)